=== PATIENT | male | born 1985 | race Caucasian/White ===

== ENCOUNTER 2016-11-25 11:29 | Inpatient (IN) | payer BC ==
[~2016-11-25] VITALS: Ht 188 cm; Wt 100.4 kg
[2016-11-25 13:18] LABS: BASOPHIL % 1.1 % (0-2); PLATELET COUNT 208 x10^3mcL (130-400); RED CELL DISTRIBUTION WIDTH 13.1 % (11.5-14.5)
[2016-11-25] MEDS ORDERED: INVOKANA300 MG PO (13:32)
[2016-11-25 13:42] LABS: CK-MB 0.6 ng/mL (0-3.6)
[2016-11-25 13:59] LABS: CALCIUM 9.3 mg/dL (8.5-10.1); CARBON DIOXIDE 22.4 mmol/L (21-32); CHLORIDE SERUM 101 mmol/L (98-107); CREATININE SERUM 0.9 mg/dL (0.7-1.3); GFR1 > 60 mL/min; GLUCOSE SERUM 132 mg/dL (74-106); SODIUM SERUM 136 mmol/L (136-145)
[2016-11-25 14:09] LABS: ALBUMIN 3.8 g/dL (3.4-5.0); ALKALINE PHOSPHATASE 84 U/L (46-116); ALT/SGPT 146 U/L (16-63); AST/SGOT 36 U/L (15-37); BILIRUBIN TOTAL 1.09 mg/dL (0.20-1.00); C REACTIVE PROTEIN 7.7 mg/dL (<=0.9)
[2016-11-25 14:12] LABS: TOTAL PROTEIN, SERUM 8.4 g/dL (6.4-8.2)
[2016-11-25 14:24] LABS: ERYTHROCYTE SED RATE 17 mm/hr (0-15)
[2016-11-25 15:50] VITALS: BP 136/96
[2016-11-25 15:55] VITALS: Ht 188 cm; Wt 100.4 kg
[2016-11-25 16:49] LABS: MAGNESIUM 2.4 mg/dL (1.8-2.4); PHOSPHOROUS 4.2 mg/dL (2.5-4.9)
[2016-11-25 16:52] LABS: T3 TOTAL 1.05 ng/mL
[2016-11-25 16:55] LABS: CHOLESTEROL/HDL RATIO 5.1; FREE T4 1.28 ng/dL (0.76-1.46); FREE THYROXINE INDEX 4.1 ug/dL (1.4-4.5)
[2016-11-25 17:39] LABS: microscopic required? NO
[2016-11-25 17:53] LABS: UA SPECIFIC GRAVITY 1.025 (1.005-1.035); urine erythrocyte NEGATIVE (NEGATIVE)
[2016-11-25 18:13] LABS: AMPHETAMINE QUAL UR NONE DETECTED (NEG <=1000)
[2016-11-25 20:51] VITALS: BP 126/80
[2016-11-26 05:39] VITALS: BP 112/64
[2016-11-26 06:23] LABS: BASOPHIL % 0.3 % (0-2); PLATELET COUNT 172 x10^3mcL (130-400); RED CELL DISTRIBUTION WIDTH 12.7 % (11.5-14.5)
[2016-11-26 06:25] LABS: CALCIUM 8.5 mg/dL (8.5-10.1); CARBON DIOXIDE 19.7 mmol/L (21-32); CHLORIDE SERUM 105 mmol/L (98-107); CREATININE SERUM 0.8 mg/dL (0.7-1.3); GFR1 > 60 mL/min; GLUCOSE SERUM 96 mg/dL (74-106); SODIUM SERUM 138 mmol/L (136-145)
[2016-11-26 10:53] VITALS: BP 120/78
[2016-11-26 13:07] VITALS: BP 137/83
[2016-11-26 17:24] VITALS: BP 136/78
[2016-11-26 21:42] VITALS: BP 134/87
[2016-11-27 06:21] VITALS: BP 122/76
[2016-11-27 07:07] LABS: BASOPHIL % 0.3 % (0-2); PLATELET COUNT 219 x10^3mcL (130-400)
[2016-11-27 07:30] LABS: CALCIUM 8.9 mg/dL (8.5-10.1); CARBON DIOXIDE 21.8 mmol/L (21-32); CHLORIDE SERUM 101 mmol/L (98-107); CREATININE SERUM 0.9 mg/dL (0.7-1.3); GFR1 > 60 mL/min; GLUCOSE SERUM 142 mg/dL (74-106); POTASSIUM SERUM 4.2 mmol/L (3.5-5.1); SODIUM SERUM 136 mmol/L (136-145)
[2016-11-27 09:19] VITALS: BP 129/81
[2016-11-27 16:44] VITALS: BP 136/87
== END 2016-11-27 18:02 | disposition left against medical advice (07) | DRG 603 ==
LOC: ED 11:29 → DU 14:52
PROVIDERS: Specialist; ADMIT Family Medicine
DX: L03.116 Cellulitis of left lower limb (principal); D68.69 Other thrombophilia; E11.65 Type 2 diabetes mellitus with hyperglycemia
CPT/HCPCS: 83880; 84439; J1885; J2405; J2543; J3010; J3490; J7030; Q0092